=== PATIENT | male | born 1980 | race Caucasian/White ===

== ENCOUNTER → 2016-05-23 | Outpatient (CLI) | payer BC ==
--- NOTE | 2016-05-23 16:34 | DIAGNOSTIC IMAGING REPORT ---
RIGHT FOOT MIN 3 VIEWS ROUTINE CLINICAL HISTORY: Right foot pain COMPARISON: None. DISCUSSION: No acute fractures are visualized. Degenerative changes are present the level the first metatarsal phalangeal joint. There is a mild hallux valgus deformity. There is no erosive disease. IMPRESSION: 1. No acute fractures 2. Mild degenerative changes at the level of the first metatarsal phalangeal joint. Electronically signed by: Kemar Larson M.D. 05/23/2016 4:33 PM Dictated Date/Time: 05/23/2016 4:32 PM
== END | disposition home or self-care (01) ==
LOC: C.RADBC 15:44
PROVIDERS: ATTEND Internal Medicine Geriatric Medicine
DX: M25.571 Pain in right ankle and joints of right foot (principal)

== ENCOUNTER → 2016-12-19 | Outpatient (CLI) | payer BC ==
--- NOTE | 2016-12-19 12:05 | DIAGNOSTIC IMAGING REPORT ---
LUMBAR SPINE 5 VIEWS CLINICAL HISTORY: Low back pain. FINDINGS: 5 views of the lumbar spine are obtained. No prior studies are available for comparison at the time of dictation. The skeletal structures are well mineralized. There is no radiographic evidence of fracture or malalignment. Vertebral body height and alignment are maintained. The transverse and spinous processes are intact. There is no evidence of spondylolysis. Tiny anterior osteophytes are seen at L4-L5. The intervertebral disc spaces are well-maintained. The visualized bony pelvis appears intact. There is a nonobstructed abdominal bowel gas pattern. There is moderate colonic fecal retention. IMPRESSION: Unremarkable radiographic evaluation of the lumbosacral spine. Electronically signed by: Chris Mcnamara M.D. 12/19/2016 12:04 PM Dictated Date/Time: 12/19/2016 12:03 PM
--- NOTE | 2016-12-19 12:09 | DIAGNOSTIC IMAGING REPORT ---
THORACIC SPINE 3 VIEWS CLINICAL HISTORY: Low back pain. FINDINGS: AP, lateral, and swimmer's views of the thoracic spine are obtained. No prior studies are available for comparison at the time of dictation. The skeletal structures are well mineralized. There is no radiographic evidence of fracture or malalignment. Vertebral body height and alignment are maintained. The transverse processes and pedicles are grossly intact as seen on the frontal view. The intervertebral disc spaces are preserved. Tiny anterior osteophytes are noted in the midthoracic region. The imaged lung parenchyma appears clear. IMPRESSION: No acute bony abnormality is seen involving the thoracic spine. Electronically signed by: Chris Mcnamara M.D. 12/19/2016 12:08 PM Dictated Date/Time: 12/19/2016 12:07 PM
== END | disposition home or self-care (01) ==
LOC: C.RADBC 11:08
PROVIDERS: ATTEND Physician Assistant Medical
DX: M54.5 Low back pain (principal)

== ENCOUNTER → 2017-06-13 | Outpatient (CLI) | payer BC | END | disposition home or self-care (01) | LOC: C.RDSM 15:41 | PROVIDERS: ATTEND Family Medicine | DX: M54.5 Low back pain (principal); M53.3 Sacrococcygeal disorders, not elsewhere classified ==